=== PATIENT | female | born 1965 | race Two or more races ===

== ENCOUNTER 2019-06-30 23:42 | Emergency (ER) | payer SELFPAY ==
[~2019-06-30] VITALS: Ht 152.4 cm; Wt 52.2 kg
--- NOTE | 2019-07-01 00:07 | NUR ---
ED Nurse Note: Patient walked into ED from home d/t left sided flank pain for 3 days 01/07. Patient aao x 4 and ambulatory with steady gait. Patient has redness and rash on left side. Patient stable upon assessment. Addendum: 07/01/19 at 0011 by [facility] ED Nurse Note: Patient walked into ED from home d/t left sided flank pain for 3 days 10/07. Patient aao x 4 and ambulatory with steady gait. Patient has redness and rash on left side. Patient stable upon assessment.
[2019-07-01 00:08] VITALS: BP 132/70
[2019-07-01] MEDS ORDERED: VALACYCLOVIR500 MG ORAL (00:14)
[2019-07-01] MEDS ORDERED: LACTULOSE20 GM/301 ORAL (00:14)
[2019-07-01] MEDS ORDERED: HYDROCODON-ACE1 EA15 ORAL (00:14)
--- NOTE | 2019-07-01 00:14 | Emergency Room Report ---
History of Present Illness General Chief Complaint: General Complaint Source: Patient Present Illness [facility] This is a 54-year-old female with no past medical history. She presents with chief complaint abdominal pain and rash. Onset for last 3 days. Throbbing in nature and sharp in nature. 8 out of 10. Started on the back and radiate to the front on the left side. She also felt swelling in that area. No fever or chills. Also said that she felt constipated and no bowel movement for 3 days. Nothing made it better. Nothing made it worse. No fever chills. No nausea vomiting or diarrhea. No urinary complaint. Allergies: Coded Allergies: No Known Allergies (Unverified , 06/30/19) COVID-19 Screening Contact w/high risk pt: No Recent Travel to affected area: No Experienced COVID-19 symptoms?: No Patient History Past Medical History: see triage record, old chart reviewed Past Surgical History: none Pertinent Family History: none Social History: Denies: smoking Now: No Immunizations: other Reviewed Nursing Documentation: PMH: Agreed; PSxH: Agreed Nursing Documentation-PMH Past Medical History: No Stated History Review of Systems Eye: Denies: eye pain, blurred vision ENT: Denies: ear pain, nose congestion, throat swelling Respiratory: Denies: cough, shortness of breath Cardiovascular: Denies: chest pain, palpitations Gastrointestinal: Reports: abdominal pain; Denies: diarrhea, nausea, vomiting Musculoskeletal: Denies: back pain, joint pain Skin: Reports: rash Neurological: Denies: headache, numbness Endocrine: Denies: increased thirst, increased urine Hematologic/Lymphatic: Denies: easy bruising All Other Systems: negative except mentioned in HPI Physical Exam Vital Signs Date Time Temp Pulse Resp B/P (MAP) Pulse Ox O2 Delivery O2 Flow Rate FiO2 06/30/19 23:57 98.8 93 18 134/66 (88) 93 Room Air Vitals normal Sp02 EP Interpretation: reviewed, normal General Appearance: well appearing, no apparent distress, alert Head: normocephalic, atraumatic Eyes: bilateral eye PERRL, bilateral eye EOMI ENT: hearing grossly normal, normal pharynx Neck: full range of motion, supple, no meningismus Respiratory: chest non-tender, lungs clear, normal breath sounds Cardiovascular #1: regular rate, rhythm, no murmur Gastrointestinal: normal bowel sounds, non tender, no mass, no organomegaly, no bruit, non-distended Musculoskeletal: back normal, normal range of motion, gait/station normal Neurologic: alert, oriented Psychiatric: mood/affect normal Skin: other - vesicular lesion on left flank along the left T8/T9 distribution. Medical Decision Making Diagnostic Impression: Primary Impression: Shingles Qualified Codes: B02.9 - Zoster without complications Additional Impression: Constipation Qualified Codes: K59.00 - Constipation, unspecified ER Course Patient presents with shingles. No evidence of an acute abdomen. Will discharge home. Last Vital Signs Date Time Temp Pulse Resp B/P (MAP) Pulse Ox O2 Delivery O2 Flow Rate FiO2 06/30/19 23:57 98.8 93 18 134/66 (88) 93 Room Air Status: unchanged Disposition: HOME, SELF-CARE Condition: Stable Scripts Lactulose (LACTULOSE*) 20 Gm/30 Ml Solution 30 ML ORAL DAILY, #240 ML 0 Refills Prov: Dez Webb MD 07/01/19 Hydrocodone/Acetaminophen 5-325* (HYDROCODONE/ACETAMINOPHEN 5-325*) 1 Each Tablet 1 TAB ORAL Q6H PRN for For Pain, #15 TAB 0 Refills Prov: Dez Webb MD 07/01/19 Valacyclovir Hcl* (VALTREX*) 500 Mg Tablet 1000 MG ORAL TID for 7 Days, TAB Prov: Dez Webb MD 07/01/19 Additional Instructions: Follow-up with your doctor in 7 days. Return if symptoms worsen. Dez Webb MD Jul 01, 2019 00:14
--- NOTE | 2019-07-01 00:19 | NUR ---
ER DISCHARGE NOTE: Patient is cleared to be discharged per ERMD, pt is aox4, on room air, with stable vital signs. pt was given dc and prescription instructions, pt was able to verbalize understanding, pt id band removed. pt is able to ambulate with steady gait. pt took all belongings. pt stable upon discharge.
== END 2019-07-01 00:19 | disposition home or self-care (01) ==
LOC: EMR 07-01 00:15
DX: B02.9 Zoster without complications (principal); K59.00 Constipation, unspecified
CPT/HCPCS: 99282

== ENCOUNTER 2020-05-06 21:16 | Emergency (ER) | payer MEDICAID ==
[~2020-05-06] VITALS: Ht 154.9 cm; Wt 63.5 kg
[~2020-05-06 21:16] MED LIST: HYDROCODON-ACE1 EA15 ORAL; LACTULOSE20 GM/301 ORAL; VALACYCLOVIR500 MG ORAL
--- NOTE | 2020-05-06 21:28 | NUR ---
ED Nurse Note: Patient came to the ED from home with complaints of chest pain, intermittent for the past week. Patient also reports redness, swelling and numbness and tingling sensation to face.
--- NOTE | 2020-05-06 21:38 | Emergency Room Report ---
History of Present Illness General Chief Complaint: Chest Pain Source: Patient Present Illness HPI Patient is a 55-year-old female presents for increased chest discomfort as well as facial swelling. Reports having onset of symptoms earlier in the day. Reports having some recent change in facial cream. Associated shortness of breath. Denies any vomiting or diarrhea. Denies any prior cardiac history. She did not take any medications regularly. Allergies: Coded Allergies: No Known Allergies (Unverified , 06/30/19) COVID-19 Screening Contact w/high risk pt: No Recent Travel to affected area: No Experienced COVID-19 symptoms?: No COVID-19 Testing performed [employer]: No Patient History Past Medical History: see triage record Reviewed Nursing Documentation: PMH: Agreed; PSxH: Agreed Nursing Documentation-PMH Past Medical History: No Stated History Review of Systems All Other Systems: negative except mentioned in HPI Physical Exam Vital Signs Date Time Temp Pulse Resp B/P (MAP) Pulse Ox O2 Delivery O2 Flow Rate FiO2 05/06/20 21:18 98.8 83 18 155/75 (101) 100 Room Air Sp02 EP Interpretation: reviewed, normal General Appearance: normal inspection, well appearing, no apparent distress, alert, GCS 15, non-toxic Head: atraumatic ENT: normal ENT inspection, hearing grossly normal, normal voice Neck: normal inspection, full range of motion, supple, no bony tend Respiratory: normal inspection, lungs clear, normal breath sounds, no respiratory distress, no retraction, no wheezing Cardiovascular #1: regular rate, rhythm, no edema Gastrointestinal: normal inspection, normal bowel sounds, non tender, soft, no guarding, no hernia Genitourinary: no CVA tenderness Musculoskeletal: normal inspection, back normal, normal range of motion Neurologic: alert, responsive, speech normal, normal inspection Psychiatric: normal inspection, judgement/insight normal, mood/affect normal Medical Decision Making ER Course Patient presents for chest pain. Differential diagnosis include was not limited to allergic reaction, superior vena cava syndrome, myocardial infarction, among others. Because of complexity of patient's case laboratory tests and imaging studies were ordered. Patient's initial EKG interpreted by me showed normal sinus rhythm with a rate of 80 with some motion artifact as well as some nonspecific ST changes. Patient was given Solu-Medrol as well as Benadryl due to facial erythema which appears to be allergic in nature. Chest x-ray and laboratory testing was ordered. Last Vital Signs Date Time Temp Pulse Resp B/P (MAP) Pulse Ox O2 Delivery O2 Flow Rate FiO2 05/06/20 21:18 98.8 83 18 155/75 (101) 100 Room Air Referrals: NOT CHOSEN IPA/,REFERRING (PCP) Sky Handy MD May 06, 2020 21:38
[2020-05-06 21:43] LABS: BASOPHILS % (AUTO) 1.1 % (0.0-2.0); EOSINOPHILS % (AUTO) 2.1 % (0.0-3.0); HEMATOCRIT 37.1 % (37.0-47.0); HEMOGLOBIN 11.6 G/DL (12.0-16.0); LYMPHOCYTES % (AUTO) 24.7 % (20.0-45.0); MEAN CORPUSCULAR VOLUME 79 FL (80-99); NEUTROPHILS % (AUTO) 68.1 % (45.0-75.0); PLATELET COUNT 279 K/UL (150-450); RED BLOOD COUNT 4.71 M/UL (4.20-5.40); RED CELL DISTRIBUTION WIDTH 15.9 % (11.6-14.8); WHITE BLOOD COUNT 10.6 K/UL (4.8-10.8)
[2020-05-06] MEDS ORDERED: Solu-MEDROL 125mg Inj IVP ONE (21:45)
[2020-05-06] MEDS ORDERED: DiphenhydrAMINE 50mg/ml Inj IVP ONE (21:45)
[2020-05-06 21:52] LABS: ANION GAP 6 mmol/L (5-15); BLOOD UREA NITROGEN 17 mg/dL (7-18); CALCIUM 8.7 MG/DL (8.5-10.1); CARBON DIOXIDE 31 MMOL/L (21-32); CHLORIDE 108 MMOL/L (98-107); CREATININE 0.8 MG/DL (0.55-1.30); POTASSIUM 3.4 MMOL/L (3.5-5.1); SODIUM 145 MMOL/L (136-145)
--- NOTE | 2020-05-06 21:59 | NUR ---
ED Nurse Note: Patient is complaining of chest pain 08/07. BP 124/65, HR 79, 02 sat 98% RA, SR.
[2020-05-06 22:02] VITALS: BP 155/75
[2020-05-06 22:03] LABS: ALANINE AMINOTRANSFERASE 24 U/L (12-78); ALBUMIN 3.5 G/DL (3.4-5.0); ALBUMIN/GLOBULIN RATIO 0.8 (1.0-2.7); ALKALINE PHOSPHATASE 102 U/L (46-116); ASPARTATE AMINO TRANSFERASE 19 U/L (15-37); BILIRUBIN,TOTAL 0.3 MG/DL (0.2-1.0)
--- NOTE | 2020-05-06 22:07 | Diagnostic Imaging Report ---
EXAM: XR Chest, 1 View CLINICAL HISTORY: SOB TECHNIQUE: Frontal view of the chest. COMPARISON: None FINDINGS: Lungs: There patchy bibasilar infiltrates. Pleural space: Unremarkable. No pneumothorax. Heart: The heart is enlarged. Mediastinum: Unremarkable. Bones/joints: Unremarkable. IMPRESSION: Findings are worrisome for atypical pneumonia, such as Covid 19.
[2020-05-06] MEDS ORDERED: PREDNISONE20 MG ORAL (22:09)
[2020-05-06] MEDS ORDERED: BENADRYL25 MG ORAL (22:09)
[2020-05-06 22:19] LABS: APPEARANCE,URINE CLEAR; BILIRUBIN, URINE NEGATIVE (NEGATIVE); COLOR,URINE PALE YELLOW; GLUCOSE, URINE (UA) NEGATIVE (NEGATIVE); KETONES,URINE NEGATIVE (NEGATIVE); NITRITE,URINE NEGATIVE (NEGATIVE); PH,URINE 8 (4.5-8.0); PROTEIN,URINE NEGATIVE (NEGATIVE); UROBILINOGEN,URINE NORMAL MG/DL (0.0-1.0)
[2020-05-06 22:27] VITALS: BP 124/75
--- NOTE | 2020-05-06 22:27 | NUR ---
ER DISCHARGE NOTE: Patient is cleared to be discharged per ERMD, pt is aox4, on room air, with stable vital signs. pt was given dc and prescription instructions, pt was able to verbalize understanding, pt id band and iv site removed without complications. pt is able to ambulate with steady gait. pt took all belongings. return to work note given, copy of labs and imaging given.
[2020-05-06 22:33] LABS: LEUKOCYTE ESTERASE ,URINE NEGATIVE (NEGATIVE)
== END 2020-05-06 22:30 | disposition home or self-care (01) ==
LOC: EMR 21:31
DX: R22.0 Localized swelling, mass and lump, head (principal); R07.9 Chest pain, unspecified; R06.02 Shortness of breath; I51.7 Cardiomegaly
CPT/HCPCS: 36415; 71045; 80053; 81003; 83880; 84484; 85025; 85379; 93005; 96374; 96375; J1200; J2930; Z7502; 99284

== ENCOUNTER 2020-05-16 13:41 | Emergency (ER) | payer MEDICAID ==
[~2020-05-16] VITALS: Ht 152.4 cm; Wt 63.5 kg
[~2020-05-16 13:41] MED LIST changes: +BENADRYL25 MG ORAL; +PREDNISONE20 MG ORAL
--- NOTE | 2020-05-16 14:36 | Emergency Room Report ---
History of Present Illness General Chief Complaint: Generalized Weakness Source: Patient Present Illness HPI Disclaimer: Please note that this report is being documented using DRAGON technology. This can lead to erroneous entry secondary to incorrect interpretation by the dictating instrument. HPI: 55-year-old female presents for evaluation of generalized weakness. She reports 3 days of fatigue without fever, chills, myalgias, arthralgias. She also states that over the past 3 months she has had intermittent tenderness over the left upper chest. No obvious trigger for this pain. She saw her PMD earlier today who told her to come to the ER for "cardiac evaluation." Patient states she was given an aspirin prior to arrival by PMD. Denies lower extremity pain or swelling. Denies fever or chills. Denies cough or shortness of breath. She does note exertional dyspnea over the past 3 months. PMH: Reviewed PSH: Reviewed Allergies: Reviewed Social Hx: Reviewed Allergies: Coded Allergies: No Known Allergies (Unverified , 06/30/19) COVID-19 Screening Contact w/high risk pt: No Recent Travel to affected area: No Experienced COVID-19 symptoms?: No COVID-19 Testing performed [employer]: Yes COVID-19 Screening: Negative COVID-19 COVID-19 Testing Source: nasal Nursing Documentation-PMH Past Medical History: No Stated History Review of Systems All Other Systems: negative except mentioned in HPI Physical Exam Vital Signs Date Time Temp Pulse Resp B/P (MAP) Pulse Ox O2 Delivery O2 Flow Rate FiO2 05/16/20 13:55 98.1 88 16 134/73 (93) 98 Room Air General: Awake and alert, no acute distress HEENT: NC/AT. EOMI. Cardiovascular: RRR. S1 and S2 normal. No murmur appreciated Resp: Normal work of breathing. No cough, wheezing or crackles appreciated Abdomen: Abdomen is soft, nondistended. Nontender Skin: Intact. No abrasions, laceration or rash over the exposed skin MSK: Normal tone and bulk. Moving all extremities. No obvious deformity. Neuro: Awake and alert. Mentating appropriately. Medical Decision Making Diagnostic Impression: Primary Impression: Episode of generalized weakness ER Course 55-year-old female presents for 3 months of chest pain and 3 days of fatigue. Differential includes not limited to ACS, angina, arrhythmia, dehydration, viral syndrome, electrolyte abnormality among others. EKG on arrival shows normal si nus rhythm without ischemic changes. Chest x-ray unremarkable. No mass or cardiac abnormalities noted. Troponin, chemistry and blood cell count are within normal limits. Talk screen negative. Patient has had stable vital signs throughout ER visit. No complaints currently. I updated the patient's primary care provider, Gem Blanc, at the clinic. I will include copies of all work-up for patient to take back to clinic later this week. Further outpatient testing as indicated. Instructed to return with new or worsening symptoms. She understands and agrees with this treatment plan. Laboratory Tests Test 05/16/20 14:34 05/16/20 15:06 Urine Color Pale yellow Urine Appearance Clear Urine pH 7 (4.5-8.0) Urine Specific Kelley 1.005 (1.005-1.035) Urine Protein Negative (NEGATIVE) Urine Glucose (UA) Negative (NEGATIVE) Urine Ketones Negative (NEGATIVE) Urine Blood 1+ (NEGATIVE) H Urine Nitrite Negative (NEGATIVE) Urine Bilirubin Negative (NEGATIVE) Urine Urobilinogen Normal MG/DL (0.0-1.0) Urine Leukocyte Esterase Negative (NEGATIVE) Urine RBC 0-2 /HPF (0 - 2) Urine WBC 0-2 /HPF (0 - 2) Urine Squamous Epithelial Cells Occasional /LPF Urine Bacteria None /HPF (NONE) Urine Opiates Screen Negative (NEGATIVE) Urine Barbiturates Screen Negative (NEGATIVE) Phencyclidine (PCP) Screen Negative (NEGATIVE) Urine Amphetamines Screen Negative (NEGATIVE) Urine Benzodiazepines Screen Negative (NEGATIVE) Urine Cocaine Screen Negative (NEGATIVE) Urine Marijuana (THC) Screen Negative (NEGATIVE) White Blood Count 7.4 K/UL (4.8-10.8) Red Blood Count 5.11 M/UL (4.20-5.40) Hemoglobin 12.6 G/DL (12.0-16.0) Hematocrit 40.7 % (37.0-47.0) Mean Corpuscular Volume 80 FL (80-99) Mean Corpuscular Hemoglobin 24.6 PG (27.0-31.0) L Mean Corpuscular Hemoglobin Concent 30.9 G/DL (32.0-36.0) L Red Cell Distribution Width 16.4 % (11.6-14.8) H Platelet Count 280 K/UL (150-450) Mean Platelet Volume 8.5 FL (6.5-10.1) Neutrophils (%) (Auto) 68.5 % (45.0-75.0) Lymphocytes (%) (Auto) 23.4 % (20.0-45.0) Monocytes (%) (Auto) 5.5 % (1.0-10.0) Eosinophils (%) (Auto) 1.3 % (0.0-3.0) Basophils (%) (Auto) 1.3 % (0.0-2.0) Sodium Level 141 MMOL/L (136-145) Potassium Level 4.0 MMOL/L (3.5-5.1) Chloride Level 106 MMOL/L (98-107) Carbon Dioxide Level 29 MMOL/L (21-32) Anion Gap 6 mmol/L (5-15) Blood Urea Nitrogen 16 mg/dL (7-18) Creatinine 0.6 MG/DL (0.55-1.30) Estimated Glomerular Filtration Rate > 60 mL/min (>60) Glucose Level 114 MG/DL (74-106) H Calcium Level 9.0 MG/DL (8.5-10.1) Total Bilirubin 0.2 MG/DL (0.2-1.0) Aspartate Amino Transferase (AST) 13 U/L (15-37) L Alanine Aminotransferase (ALT) 22 U/L (12-78) Alkaline Phosphatase 96 U/L (46-116) Troponin I 0.000 ng/mL (0.000-0.056) Total Protein 7.7 G/DL (6.4-8.2) Albumin 3.3 G/DL (3.4-5.0) L Globulin 4.4 g/dL Albumin/Globulin Ratio 0.8 (1.0-2.7) L Thyroid Stimulating Hormone (TSH) 1.444 uiU/mL (0.358-3.740) Free Thyroxine 0.92 NG/DL (0.76-1.46) Free Triiodothyronine 2.3 pg/mL (2.3-4.2) EKG Diagnostic Results Troponin ordered: Yes When was troponin ordered?: May 16, 2020 EKG Time: 14:30 Rate: normal Rhythm: NSR ST Segments: no acute changes Other Impression Sinus rhythm, normal axis, normal intervals, QTC 417 ms, no ST segment abnormalities. Rhythm Strip Diag. Results Rhythm Strip Time: 14:30 EP Interpretation: yes Rate: 70s Rhythm: NSR, no PVC's, no ectopy Last Vital Signs Date Time Temp Pulse Resp B/P (MAP) Pulse Ox O2 Delivery O2 Flow Rate FiO2 05/16/20 13:55 98.1 88 16 134/73 (93) 98 Room Air Disposition: HOME, SELF-CARE Condition: Stable Ke Salmon MD May 16, 2020 14:36
--- NOTE | 2020-05-16 15:02 | NUR ---
Patient presents to the ER for evaluation of generalized weakness. Reported that she has three days of fatigue minus chills. She also states that she has been having intermittent tenderness x 3 months in her left upper chest not exacerbated by anything. She spoke to her primary earlier today who told her to come to the ER for evaluation. She was administered ASA prior to coming into the ER by her primary. Denies pain and SOB at present. AAOX4.
[2020-05-16 15:09] LABS: APPEARANCE,URINE CLEAR; BILIRUBIN, URINE NEGATIVE (NEGATIVE); COLOR,URINE PALE YELLOW; GLUCOSE, URINE (UA) NEGATIVE (NEGATIVE); KETONES,URINE NEGATIVE (NEGATIVE); LEUKOCYTE ESTERASE ,URINE NEGATIVE (NEGATIVE); NITRITE,URINE NEGATIVE (NEGATIVE); PH,URINE 7 (4.5-8.0); PROTEIN,URINE NEGATIVE (NEGATIVE); UROBILINOGEN,URINE NORMAL MG/DL (0.0-1.0)
[2020-05-16 15:29] LABS: BASOPHILS % (AUTO) 1.3 % (0.0-2.0); EOSINOPHILS % (AUTO) 1.3 % (0.0-3.0); HEMATOCRIT 40.7 % (37.0-47.0); HEMOGLOBIN 12.6 G/DL (12.0-16.0); LYMPHOCYTES % (AUTO) 23.4 % (20.0-45.0); MEAN CORPUSCULAR VOLUME 80 FL (80-99); MONOCYTES % (AUTO) 5.5 % (1.0-10.0); NEUTROPHILS % (AUTO) 68.5 % (45.0-75.0); PLATELET COUNT 280 K/UL (150-450); RED BLOOD COUNT 5.11 M/UL (4.20-5.40); RED CELL DISTRIBUTION WIDTH 16.4 % (11.6-14.8); WHITE BLOOD COUNT 7.4 K/UL (4.8-10.8)
--- NOTE | 2020-05-16 15:30 | Diagnostic Imaging Report ---
Indication: Chest pain Technique: One view of the chest Comparison: May 06, 2020 Findings: Lungs and pleural spaces are clear. Heart size is normal. No significant change Impression: No acute process
[2020-05-16 15:40] LABS: ANION GAP 6 mmol/L (5-15); BLOOD UREA NITROGEN 16 mg/dL (7-18); CARBON DIOXIDE 29 MMOL/L (21-32); CHLORIDE 106 MMOL/L (98-107); CREATININE 0.6 MG/DL (0.55-1.30); SODIUM 141 MMOL/L (136-145)
[2020-05-16 15:44] LABS: ALANINE AMINOTRANSFERASE 22 U/L (12-78); ALBUMIN 3.3 G/DL (3.4-5.0); ALBUMIN/GLOBULIN RATIO 0.8 (1.0-2.7); ALKALINE PHOSPHATASE 96 U/L (46-116); ASPARTATE AMINO TRANSFERASE 13 U/L (15-37); BILIRUBIN,TOTAL 0.2 MG/DL (0.2-1.0)
[2020-05-16 16:10] VITALS: BP 123/66
== END 2020-05-16 16:33 | disposition home or self-care (01) ==
LOC: EMR 14:10
DX: R53.1 Weakness (principal); R07.9 Chest pain, unspecified; R53.83 Other fatigue
CPT/HCPCS: 36415; 71045; 80053; 80307; 81003; 84439; 84443; 84481; 84484; 85025; 93005; 96360; Z7502; 99284